=== PATIENT | male | born 1965 | race Caucasian/White ===

== ENCOUNTER 2021-12-04 19:34 | Inpatient (IN) | payer BC, MEDICARE ==
[~2021-12-04] VITALS: Ht 188 cm; Wt 119.0 kg
[2021-12-04 20:40] LABS: Basophils # (auto) 0 10 ^3/uL (0-0.2); Basophils % (auto) 0.6 % (0.0-2.0); Eosinophils # (auto) 0 10 ^3/uL (0-0.8); Eosinophils % (auto) 0.1 % (0.0-7.0); Hematocrit 27.9 % (41.0-53.0); Hemoglobin 9.8 g/dL (13.5-17.5); Lymphocytes # (auto) 1.4 10 ^3/uL (0.4-5.4); Lymphocytes % (auto) 17.9 % (10.0-50.0); Mean Corpuscular Hemoglobin 32.5 pg (28.0-32.0); Mean Corpuscular Volume 92.8 fL (80.0-100.0); Monocytes # (auto) 0.7 10 ^3/uL (0-1.3); Monocytes % (auto) 9.2 % (0.0-12.0); Neutrophils # (auto) 5.7 10 ^3/uL (1.6-8.6); Neutrophils % (auto) 72.2 % (37.0-80.0); Nucleated Red Blood Cells % 0.1 %; Red Cell Distribution Width 14.1 % (11.8-14.3); White Blood Cell 7.9 10^3/uL (4.4-10.8)
[2021-12-04 21:09] LABS: Albumin 2.4 g/dL (3.4-5.0); Calcium 8.3 mg/dL (8.5-10.1); Magnesium 1.7 mg/dL (1.6-2.6); Potassium 4.2 mmol/L (3.5-5.1)
[2021-12-04 21:12] LABS: BUN/Creatinine Ratio 15.8; Bilirubin, Total 0.3 mg/dL (0.2-1.0); INR 1.08 (0.9-1.15); Partial Thromboplastin Time 25.3 sec (23.6-33.0); Total Protein 9.7 g/dL (6.4-8.2)
[2021-12-04] MEDS ORDERED: ASPirin 325 MG TAB PO ONE (21:30)
[2021-12-04] MEDS ORDERED: SODIUM CHLORIDE 0.9% 500 ML IVB ONE (21:30)
[2021-12-04] MEDS ORDERED: CLOPIDOGREL 300 MG TAB PO ONE (21:30)
[2021-12-04] MEDS ORDERED: NITROGLYCERIN 0.4 MG SL TAB SL ONE (21:30)
[2021-12-04] MEDS ORDERED: HEPARIN DRIP/D5W 100UNITS/ML 250 ML IV SCH ×2 (21:45→22:45)
[2021-12-04] MEDS: SODIUM CHLOR 0.9% PF (SALINE LOCK) 10ML VIAL/SYR IV SCH (22:00)
[2021-12-04] MEDS ORDERED: IOHEXOL 350 MG/ML 100ML IJ ONE (23:21)
[2021-12-04] MEDS ORDERED: ACETAMINOPHEN 325 MG TAB PO PRN (23:30)
[2021-12-04] MEDS ORDERED: TEMAZEPAM 15 MG CAP PO PRN (23:30)
[2021-12-04] MEDS ORDERED: SODIUM CHLORIDE 0.9% 500 ML IV ONE (23:30)
[2021-12-04] MEDS ORDERED: NITROGLYCERIN 0.4 MG SL TAB SL PRN (23:30)
[2021-12-04] MEDS ORDERED: ONDANSETRON HCL 4 MG/2 ML VIAL IV PRN (23:30)
[2021-12-04] MEDS ORDERED: MORPHINE SULFATE INJ 2 MG/ml SYRG IV PRN (23:30)
[2021-12-04] MEDS ORDERED: HEPARIN SODIUM (PORCINE) 5000 UNITS/ML 1ML VIAL IV ONE (23:45)
[2021-12-05 00:34] LABS: INR 1.13 (0.9-1.15); Partial Thromboplastin Time 27.7 sec (23.6-33.0)
[2021-12-05] MEDS ORDERED: NIFE1TAB36 PO (01:08)
[2021-12-05] MEDS ORDERED: SODI650T PO (01:08)
[2021-12-05] MEDS ORDERED: TACR1GRA PO (01:08)
[2021-12-05] MEDS ORDERED: VALG450T PO (01:08)
[2021-12-05] MEDS ORDERED: TAM04C PO (01:08)
[2021-12-05] MEDS ORDERED: FINA5TAB4 PO (01:08)
[2021-12-05] MEDS ORDERED: MYCO250C PO (01:08)
[2021-12-05] MEDS ORDERED: CAR125T PO (01:08)
[2021-12-05] MEDS ORDERED: MAGN400T40 OR (01:08)
[2021-12-05] MEDS ORDERED: SULF400T11 PO (01:08)
[2021-12-05] MEDS ORDERED: PRED10TA PO (01:08)
[2021-12-05] MEDS ORDERED: PANT40TA2 PO (01:08)
[2021-12-05] MEDS ORDERED: GABA100C PO (01:52)
[2021-12-05] MEDS ORDERED: LORA-622 PO (01:52)
[2021-12-05] MEDS ORDERED: CALC500C3 PO (01:52)
[2021-12-05] MEDS ORDERED: CALC0.5C PO (01:52)
[2021-12-05 03:38] LABS: Albumin 2.2 g/dL (3.4-5.0); Calcium 7.7 mg/dL (8.5-10.1); Potassium 4.5 mmol/L (3.5-5.1)
[2021-12-05 03:42] LABS: BUN/Creatinine Ratio 15.4; Bilirubin, Total 0.3 mg/dL (0.2-1.0); Total Protein 8.2 g/dL (6.4-8.2)
[2021-12-05 03:45] LABS: Basophils # (auto) 0 10 ^3/uL (0-0.2); Basophils % (auto) 0.5 % (0.0-2.0); Eosinophils # (auto) 0 10 ^3/uL (0-0.8); Eosinophils % (auto) 0.6 % (0.0-7.0); Hematocrit 26.3 % (41.0-53.0); Lymphocytes # (auto) 1.7 10 ^3/uL (0.4-5.4); Lymphocytes % (auto) 25.7 % (10.0-50.0); Mean Corpuscular Hemoglobin 32.4 pg (28.0-32.0); Mean Corpuscular Hgb Conc. 34.3 g/dL (32.0-36.0); Mean Corpuscular Volume 94.3 fL (80.0-100.0); Monocytes # (auto) 0.7 10 ^3/uL (0-1.3); Monocytes % (auto) 10.3 % (0.0-12.0); Neutrophils # (auto) 4.1 10 ^3/uL (1.6-8.6); Neutrophils % (auto) 62.9 % (37.0-80.0); Nucleated Red Blood Cells % 0.2 %; Red Blood Cells 2.79 10^6/uL (4.5-5.90); Red Cell Distribution Width 14.3 % (11.8-14.3); White Blood Cell 6.5 10^3/uL (4.4-10.8)
[2021-12-05] MEDS: SODIUM CHLOR 0.9% PF (SALINE LOCK) 10ML VIAL/SYR IV SCH ×3 (06:00→22:28)
[2021-12-05 08:50] LABS: INR 1.1 (0.9-1.15); Partial Thromboplastin Time 61.5 sec (23.6-33.0)
[2021-12-05] MEDS: VALGANCICLOVIR 450 MG PO SCH (10:00)
[2021-12-05] MEDS ORDERED: TACROLIMUS 1 MG CAP PO SCH (10:00)
[2021-12-05] MEDS ORDERED: MYCOPHENOLATE PO SCH (10:00)
[2021-12-05] MEDS: PANTOPRAZOLE 40 MG TAB PO SCH (10:28)
[2021-12-05] MEDS: predniSONE 5 MG TAB PO SCH (10:28)
[2021-12-05] MEDS: CARVEDILOL 3.125 MG TAB PO SCH ×2 (10:29→23:36)
[2021-12-05] MEDS: NIFEdipine ER 30 MG TAB PO SCH (10:29)
[2021-12-05 14:40] LABS: INR 1.13 (0.9-1.15)
[2021-12-05 14:52] LABS: Partial Thromboplastin Time > 139.0 sec (23.6-33.0)
[2021-12-05 15:54] LABS: % Iron Saturation 12.3 % (20-55)
[2021-12-05] MEDS: HEPARIN DRIP/D5W 100UNITS/ML 250 ML IV SCH ×3 (16:04→22:33)
[2021-12-05] MEDS ORDERED: SULFAMETHOX W/TRIMETH(800/160MG) DS TAB PO SCH (17:45)
[2021-12-05] MEDS: TACROLIMUS 1 MG CAP PO SCH (18:34)
[2021-12-05 21:10] LABS: INR 1.05 (0.9-1.15); Partial Thromboplastin Time 37.6 sec (23.6-33.0)
[2021-12-05] MEDS ORDERED: MYCOPHENOLATE MOFETIL 500 MG PO SCH (22:00)
[2021-12-05] MEDS ORDERED: MYCOPHENOLATE 360 MG PO SCH (22:00)
[2021-12-05 22:10] VITALS: BP 139/77
[2021-12-05 23:55] LABS: Urine Blood TRACE /uL (Negative); Urine Specific Gravity 1.016 (1.001-1.035); Urine WBC 1 /hpf (0 - 3)
[2021-12-05 23:56] LABS: Urine Bacteria FEW /hpf (None Seen)
[2021-12-06] MEDS ORDERED: GABAPENTIN 100 MG CAP PO ONE (00:30)
[2021-12-06 02:41] LABS: INR 1.08 (0.9-1.15); Partial Thromboplastin Time 43.7 sec (23.6-33.0)
[2021-12-06] MEDS: HEPARIN DRIP/D5W 100UNITS/ML 250 ML IV SCH (03:14)
[2021-12-06 05:00] VITALS: BP 134/76
[2021-12-06] MEDS: SODIUM CHLOR 0.9% PF (SALINE LOCK) 10ML VIAL/SYR IV SCH ×3 (05:25→21:03)
[2021-12-06 08:00] VITALS: BP 128/89
[2021-12-06] MEDS: VALGANCICLOVIR 450 MG PO SCH (08:06)
[2021-12-06 08:39] VITALS: BP 128/89
[2021-12-06] MEDS: predniSONE 5 MG TAB PO SCH (09:06)
[2021-12-06] MEDS: HYDROcodone-ACET 5/325MG TAB PO PRN ×2 (09:28→20:11)
[2021-12-06 09:30] LABS: INR 1.07 (0.9-1.15); Partial Thromboplastin Time 54.3 sec (23.6-33.0)
[2021-12-06] MEDS ORDERED: MYCOPHENOLATE 500 MG TAB PO ONE (09:30)
[2021-12-06] MEDS ORDERED: TACROLIMUS 1 MG CAP PO SCH (10:00)
[2021-12-06] MEDS ORDERED: MYCOPHENOLATE MOFETIL 500 MG PO SCH (10:00)
[2021-12-06] MEDS: PANTOPRAZOLE 40 MG TAB PO SCH (10:23)
[2021-12-06] MEDS: CARVEDILOL 3.125 MG TAB PO SCH ×2 (10:25→21:03)
[2021-12-06] MEDS: NIFEdipine ER 30 MG TAB PO SCH (10:26)
[2021-12-06 11:32] LABS: BUN/Creatinine Ratio 12.5; Calcium 8.3 mg/dL (8.5-10.1); Potassium 4.2 mmol/L (3.5-5.1)
[2021-12-06] MEDS ORDERED: ENOXAPARIN SOD 120 MG/0.8 ML SYRINGE SC ONE (12:45)
[2021-12-06 13:00] VITALS: BP 120/88
[2021-12-06] MEDS ORDERED: HEPARIN DRIP/D5W 100UNITS/ML 250 ML IV SCH (13:00)
[2021-12-06] MEDS: TACROLIMUS 1 MG CAP PO SCH (16:12)
[2021-12-06 17:00] VITALS: BP 118/84
[2021-12-06 17:21] LABS: INR 1.07 (0.9-1.15); Partial Thromboplastin Time 57.8 sec (23.6-33.0)
[2021-12-06] MEDS ORDERED: TACROLIMUS 1 MG CAP PO ONE (20:00)
[2021-12-06 22:00] VITALS: BP 110/79
[2021-12-06] MEDS ORDERED: MYCOPHENOLATE 500 MG TAB PO SCH (22:00)
[2021-12-06] MEDS ORDERED: ENOXAPARIN SOD 120 MG/0.8 ML SYRINGE SC SCH (22:00)
[2021-12-06 23:02] LABS: INR 1.07 (0.9-1.15); Partial Thromboplastin Time 58.7 sec (23.6-33.0)
[2021-12-07] MEDS ORDERED: TACROLIMUS 1 MG CAP PO SCH (06:00)
== END 2021-12-07 02:52 | disposition short-term general hospital (02) | DRG 175 ==
LOC: EDBD 19:34 → ER 19:34 → TELE 23:25 → TELE-WESTW 12-05 21:50
PROVIDERS: ADMIT Nurse Practitioner; ATTEND Internal Medicine Nephrology
DX: I26.92 Saddle embolus of pulmonary artery without acute cor pulmonale (principal); E43 Unspecified severe protein-calorie malnutrition; J96.01 Acute respiratory failure with hypoxia; N18.6 End stage renal disease; I21.A1 Myocardial infarction type 2; G61.0 Guillain-Barre syndrome; G61.81 Chronic inflammatory demyelinating polyneuritis; I13.2 Hypertensive heart and chronic kidney disease with heart failure and with stage 5 chronic kidney disease, or end stage renal disease; I82.403 Acute embolism and thrombosis of unspecified deep veins of lower extremity, bilateral; Z94.0 Kidney transplant status; N18.31 Chronic kidney disease, stage 3a; D63.8 Anemia in other chronic diseases classified elsewhere; Z20.822 Contact with and (suspected) exposure to COVID-19; E66.9 Obesity, unspecified; I50.9 Heart failure, unspecified; N40.0 Benign prostatic hyperplasia without lower urinary tract symptoms; Z85.528 Personal history of other malignant neoplasm of kidney; Z82.49 Family history of ischemic heart disease and other diseases of the circulatory system; Z99.3 Dependence on wheelchair; Z90.5 Acquired absence of kidney; Z68.33 Body mass index [BMI] 33.0-33.9, adult
CPT/HCPCS: 36415; 71045; 71275; 80048; 80053; 81001; 82728; 83540; 83550; 83690; 83735; 83880; 84443; 84484; 85025; 85379; 85610; 85730; 87081; 93005; 93306; 93970; 96361; 96365; G0378; J2405; J7507; J7517